=== PATIENT | female | born 1990 | race Caucasian/White ===

== ENCOUNTER 2021-04-12 12:56 | Emergency (ER) | payer OTHER, SELFPAY ==
[2021-04-12 13:30] VITALS: BP 107/72; PULSE 83; RESP 16; TEMP 36.8; O2SAT 100; BMI 23.8
[2021-04-12] MEDS: Ondansetron ODT 4 MG TAB.RAPDIS TRANSLINGU (13:38)
[2021-04-12 14:33] LABS: Influenza A PCR NEGATIVE (Negative); Influenza B PCR NEGATIVE (Negative); Resp Syncy Virus RNA Qual PCR NEGATIVE (Negative); SARS COV2 PCR INHOUSE NEGATIVE (Negative)
== END 2021-04-12 15:07 | disposition left against medical advice (07) ==
PROVIDERS: Emergency Provider Emergency Medicine
DX: R51.9 Headache, unspecified (principal); R11.10 Vomiting, unspecified; Z20.822 Contact with and (suspected) exposure to COVID-19
CPT/HCPCS: 0241U; 36415; 99282; 99283

== ENCOUNTER 2025-06-02 19:19 | Emergency (ER) | payer OTHER, SELFPAY ==
[2025-06-02 19:30] VITALS: BMI 23.8
--- OUTSIDE RECORDS SUMMARY | 2025-06-02 20:20 | XMS_ITS | Clinical Summary ---
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 Role Phone Daphney Overton MD Primary Care Provider [phone] Surgical History Surgery Date Site/Laterality Comments OTHER SURGICAL HISTORY PROCEDURE: DENIES PREVIOUS SURGERY Medical History Medical History Date Comments Hypothyroidism 07/01/2016 DX:Hypothyroidis m Family History Medical History Relation Name Comments Heart failure Mother Breast cancer Paternal Grandmother Colon cancer Neg Hx Ovarian cancer Neg Hx Uterine cancer Neg Hx Relation Name Status Comments Mother Paternal Grandmother Social History Tobacco Use Types Packs/Day Years Used Date Smoking Tobacco: Every Day Cigarettes Smokeless Tobacco: Never Alcohol Use Standard Drinks/Week Comments Not Currently 0 (1 standard drink = 0.6 oz pur e alcohol) Comments Unknown Sex and Gender Information Value Date Recorded Sex Assigned at Not on file Legal Sex Female 10:31 AM EST Gender Identity Not on file Sexual Orientation Not on file Obstetrics History Last Filed Vital Signs Vital Sign Reading Time Taken Comments Blood Pressure 110/77 02/20/2023 3:03 PM EDT Pulse 97 02/20/2023 3:03 PM EDT Temperature - - Respiratory Rate - - Oxygen Saturation - - Inhaled Oxygen Concentration - - Weight 62.8 kg (138 lb 6.4 oz) 02/20/2023 3:03 P M EDT Height 157.5 cm (5' 2 ) 02/20/2023 3:03 PM EDT Body Mass Index 25.31 02/20/2023 3:03 PM EDT Plan of Treatment Health Maintenance Due Date Last Done Comments Hepatitis A Vaccines (1 of 2 - Risk 2-dose series) 2007 Hepatitis B Vaccines (1 of 3 - 19+ 3-dose series) 2007 Pneumococcal Vaccine: Pediat rics (0 to 5 Years) and At-Risk Patients (6 to 49 Years) (1 of 2 - PCV) 2007 HIV Screening 08/17/2022 Hepatitis C Screening 08/17/2022 Social Influencers of Health Screening 08/17/2022 Cervical Cancer Screening: P ap Smear 03/20/2023 03/20/2020 Depression Screening 09/07/2024 COVID-19 Vaccine (1 - 2023-2 5 season) 2025 Influenza Vaccine (#1) 2025 09/09/2016 DTaP,Tdap,and Td Vaccines (2 - Td or Tdap) 02/05/2027 02/05/2017 HIB Vaccines Aged Out No longer eligi ble based on patient's age to complete this topic HPV Vaccines Aged Out No longer eligi ble based on patient's age to complete this topic IPV Vaccines Aged Out No longer eligi ble based on patient's age to complete this topic MMR Vaccines Aged Out No longer eligi ble based on patient's age to complete this topic Meningococcal ACWY Vaccine Aged Out N o longer eligible based on patient's age to complete this topic Meningococcal B Vaccine Aged Out No l onger eligible based on patient's age to complete this topic RSV Immunization Patients Un balwinder 20 months Aged Out No longer eligible b ased on patient's age to complete this topic Varicella Vaccines Aged Out No longer eligible based on patient's age to complete this topic Procedures Procedure Name Priority Date/Time Associated Diagnosis Comments PAP SMEAR Routine 03/20/2020 from Last 3 Months or Most Recently Relevant to Health Maintenance Results * Pap smear (03/20/2020) 03/20/2020 Narrative HISTORICAL TESTING LAB RESULTING AGENCY - 2020 2:10 PM EDT [id number] THINPREP PAP, IMAGED: NEGATIVE FOR SQUAMOUS INTRAEPITHELIAL LESION AND MALIGNANCY . CLUE CELLS ARE PRESENT. KILLIAN HICKS(ASCP) (CASE ELECTRONICALLY SIGNED 03 22 2020) RESULT OF APTIMA HIGH RISK HPV ASSAY: HIGH RISK HPV: NEGATIVE (SEROTYPES 16,18,31,33,35,39,45,51,52,56,58,59,66,68) COMPLETED ON 2020 ADEQUACY: SATISFACTORY ENDOCERVICAL/TRANSFORMATION ZONE COMPONENT PRESENT. SOURCE: THINPREP PAP HPV ANY DX: REFLEX 16 AND 18, CERVICAL, IMAGED CLINICAL INFORMATION: HPV ANY DIAGNOSIS. HORMONES, PAP HX NEG 07/01/16, Z12.4, LMP 02/21/20 Emily Douglass CN LAB CYTOLOGY ORDERA BLES Final Result HISTORICAL TESTING LAB RESULTING AGENCY from Last 3 Months or Most Recently Relevant to Health Maintenance Care Teams Rub[employer]s Cutter Finisher Relationship Specialty Start Date End Date Daphney Overton MD [address] [place] [address] [place] [id number] PCP - General 06/23/16
--- NOTE | 2025-06-02 23:15 | ED.PSYCH ---
HPI - Psych General Chief Complaint: Psychiatric Symptoms Stated Complaint: Delusional, section 12 Time Seen by Provider: 06/02/25 20:28 Source: patient and EMS Mode of arrival: EMS Limitations: no limitations History of Present Illness ED Provider: Dr. Nayely Lozano HPI Narrative: Patient comes to the emergency room via ambulance from crisis. According to EMS, DCF and crisis reported that the patient believes that her 8-year-old daughter is poisoning her, that she is seeing bugs, not SI or HI. According to the patient, she states that she has no believes that her 8-year-old daughter is poisoning her, denies that she is seeing bugs. So, DCF reported that the patient got suspended from work for mental health issues. The Patient states that this is a huge misunderstanding based on gossip thought got out of hand. According to the patient, she is dealing with a wood mites in her house, and at the same time, her daughter came from school with head lice. Patient states that she was overwhelmed by 2 things happening at the same time, and she asked for a leave of absence to deal with the wood mites and home. Patient is known to have rash for several months. Patient states that this rash started after she gave to her baby a proximally 1 year ago. Patient has been seen by OBGYN and Dermatology, unclear if this was autoimmune versus hormonal versus infection. The patient was prescribed antibiotics and steroids without relieving the rash. Patient states that she does not believe that there are any bugs that are causing this. Patient states that she had an installation technician go to her house and checked for bedbugs just in case. There are no bugs at home other than the wood mites. Patient states that at home, her 8-year-old was joking with her mom and told her that she put a slug and salt in her wounds. Seems that the patient's fiancee heard this, and repeated the child's joke to his sister who also works in the patient's daycare facility. This was misinterpreted as the child is poisoning her mother, and the fiancee's sister repeated this to other co-workers. However, the patient never mentioned or believed that her daughter is doing any harm. Patient states that this was a yound child's joke joke. Patient states that she is very upset with DCF, she understands that DCF was called. However, she disagrees completely with the report. Especially, patient states that she is very upset that they recommended that she is not left alone with a 1-year-old and 8-year-old children. Patient states that she has an would never hurt any of her kids. With all that said, patient denies SI or HI, denies anxiety or depression. Patient is very upset with the whole above-mentioned situation. Related Data Home Medications ?Medication ?Instructions ?Recorded ?Confirmed buprenorphine 8 mg-naloxone 2 mg 2 film sublingual DAILY 06/02/25 06/02/25 sublingual film cetirizine 10 mg tablet 10 mg PO DAILY PRN allergies 06/02/25 06/02/25 clonazepam 0.5 mg tablet 0.5 mg PO BID PRN anxiety 06/02/25 06/02/25 dextroamphetamine-amphetamine ER 1 cap PO DAILY 06/02/25 06/02/25 30 mg 24hr capsule,extend release levothyroxine 100 mcg tablet 100 mcg PO DAILY 06/02/25 06/02/25 sertraline 100 mg tablet 100 mg PO DAILY 06/02/25 06/02/25 Allergies Allergy/AdvReac Type Severity Reaction Status Date / Time No Known Allergies (No Known Allergy Verified 06/02/25 19:36 Allergies*) Review of Systems Review of Systems: Constitutional : No Weight loss, No Fever, No Chills, No Night Sweats, No Fatigue, No Malaise ENT/Mouth : No Hearing loss, No Ear Pain, No Nasal Congestion, No Sinus Pain, No Hoarseness, No sore throat, No Rhinorrhea, No Swallowing Difficulty Eyes: No Eye Pain, No Swelling, No Redness, No Foreign Body, No Discharge, No Vision Changes Cardiovascular : No Chest Pain, No SOB, No Dyspnea on Exertion, No Orthopnea, No Edema, No Palpitations Respiratory : No Cough, No Sputum, No Wheezing, No Smoke Exposure, No Dyspnea Gastrointestinal : No Nausea, No Vomiting, No Diarrhea, No Constipation, No abdominal Pain, No Hematochezia, No Melena Genitourinary : no irregular bleeding, No Dysuria, No Urinary Frequency, No Hematuria, No Urinary Incontinence, No Urgency, No Flank Pain, No Urinary Flow Changes, No Hesitancy Musculoskeletal : No joint pain, No Myalgias, No Joint Swelling Skin : Chronic rash Neuro : No Weakness, No Numbness, No Paresthesias, No Loss of Consciousness, No Dizziness, No Headache Psych : No Anxiety/Panic, No Depression, No SI/HI/AH/VH Heme/Lymph: No Bruising, No Bleeding,No Lymphadenopathy Endocrine : No Polyuria, No Polydipsia, No Temperature Intolerance PMF Past Medical History Medical History Hypothyroid Social History Social History (System 10/21/23 @ 14:34 by Carlyn Redmond) Smoked in Last 30 Days: No Advance Directives: No Advance Directives Information Provided: No Do you have a plan to hurt others: No Plan Patient : No Physical Exam Exam: Exam: Appearance: Alert. Oriented X3. No acute distress. Eyes: Pupils equal, round and reactive to light. ENT: Pharynx normal. Neck: Normal inspection. Neck supple. No lymph nodes noted. No crepitus CVS: Normal heart rate and rhythm. Pulses normal. Normal S1 and S2 Respiratory: No respiratory distress. Breath sounds normal. No Wheezing. No rales Abdomen: Soft and nontender. No rigidity. No distention. Skin: In multiple polyps of the body, patient has scab-like lesions. Extremities: No lower extremity edema. No Lacerations. No Rash Neuro: Oriented X 3. No motor deficit. No sensory deficit. Moving all extremities. No slurred speech. CN 2 through 12 grossly intact Psych: calm, cooperative, normal affect Vital Signs: Vital Signs: BMI result Body Mass Index 23.8 Medical Decision Making Medical Decision Making MDM Narrative: Overall, I do not believe that the patient is delusional or psychotic at all. Sounds like there was a huge misunderstanding between family members, at work gossip and DCF. Patient is not SI or HI, Section 12 is not indicated Patient does have a rash. Per patient, the rash has already been evaluated by dermatology and OBGYN. I discussed with the patient that the next best option is to talk to her primary care physician about referring her to immunology. It is possible that patient may have an autoimmune disorder (bullous pemhigoid, pemphigus vulgaris, dermatitis herpetiformis, ligear IgA disease, cuataneous lupus, vasculis, dermatomyositis, Behcet's or some other autoimmune disorder). Patient does have hypothyroidism which puts her at risk of other autoimmune diseases. I discussed the patient with the care team, they will evaluate the patient, labs have just been sent My interpretation of labs: No significant abnormality in patient's hematology. Urine negative for , UA negative for UTI, large amount of squamous epithelial cells present, urine positive for buprenorphine, marijuana and amphetamines, patient gets scheduled prescriptions for Adderall, buprenorphine and benzodiazepines The care team evaluated the patient They were able to get in touch with the patient's brother, patient does have history of delusions. When I spoke with the patient, she denied any history of hospitalizations. However, patient's brother report that she does have history of hospitalizations for delusions. However, inpatient level of care was not recommended or indicated. Seems that patient lied about some details, because she wants to go home and see her kids. Care team did not suspect that the patient is any danger to her kids. They were able to get in touch with the patient's fiancee who is at home now with the kids. He has no safety concerns about the patient being alone with the kids Overall, patient does not need to be section 12 Patient is not SI no HI, patient's seems so have history of delusions. However, there are no safety concerns of her being discharged or being alone with her kids Patient will follow-up with the primary care physician, care team will provide information for follow-ups in outpatient clinics. Differential Diagnosis Differential Diagnoses: The differential diagnosis associated with the presentation includes (Anxiety, misunderstanding, autoimmune disorder see above) Admission/Observation Consideration of admission/observation: Escalation of care including admission/observation considered (Care team consult pending) Consult Healthcare Provider Management of the patient was discussed with: Behavioral Health Provider Lab Data [facility] Lab Attestation statement: I reviewed the patient's lab results. 06/02/25 23:28 06/02/25 23:28 Labs: Lab Results 06/02/25 06/02/25 Range/Units 23:27 23:28 WBC 6.9 (4.8-10.8) X10*3/uL RBC 4.48 (4.20-5.50) X10*6/uL Hgb 13.2 (12.0-16.0) g/dl Hct 39.2 (37.0-47.0) % MCV 87.5 (80.0-98.0) fL MCH 29.5 (27.0-33.0) pg MCHC 33.7 (31.0-35.0) g/dl RDW 13.4 (11.0-16.0) % Plt Count 318 (160-400) X10*3/uL MPV 10.7 (9.4-12.3) fL Immature Gran % (Auto) 0.1 (0.0-0.4) % Neut % (Auto) 47.8 (45-73) % Lymph % (Auto) 41.4 H (20-40) % [place] % (Auto) 7.4 (2-11) % Eos % (Auto) 2.6 (0-4) % Baso % (Auto) 0.7 (0-2) % Lymph # (Auto) 2.9 (1.2-4.9) X10*3/uL [place] # (Auto) 0.5 (0.1-1.2) X10*3/uL Eos # (Auto) 0.2 (0.0-0.4) X10*3/uL Baso # (Auto) 0.1 (0.0-0.2) X10*3/uL Abs Immat Gran (auto) 0.01 (0.00-0.03) X10*3/uL Absolute Neuts (auto) 3.3 (2.0-8.3) x10*3/uL Absolute Nucleated RBC 0.000 (0.0-0.012) X10*3/uL Nucleated RBC % (auto) 0.0 (0.0-0.2) /100WBC Sodium 142 (135-145) mmol/L Potassium 4.5 (3.3-5.1) mmol/L Chloride 107 (96-108) mmol/L Carbon Dioxide 29 (22-29) mmol/L Anion Gap 11 L (12-20) BUN 10 (9-16) mg/dL Creatinine 0.63 (0.5-1.4) mg/dL Estim Creat Clear Calc 96.6 Estimated GFR > 60 Random Glucose 88 (60-115) mg/dL Calcium 8.9 (8.4-10.2) mg/dL Total Bilirubin 0.7 (0.0-1.0) mg/dL AST 23 (5-31) U/L ALT 17 (0-31) U/L Alkaline Phosphatase 64 (39-117) U/L Total Protein 6.4 L (6.5-8.0) g/dL Albumin 4.4 (3.5-5.0) g/dL Urine Color Dark Yellow Urine Appearance Clear Urine pH 5.5 (5.0-9.0) Ur Specific [place] 1.020 (1.005-1.025) Urine Protein Negative (Neg-Trace) mg/dL Urine Glucose (UA) Negative (Negative) mg/dL Urine Ketones Trace (Negative) mg/dL Urine Blood Negative (Negative) Urine Nitrite Negative (Negative) Ur Leukocyte Esterase Trace H (Negative) Urine RBC 0-2 (0-2) /HPF Urine WBC 0-5 (0-5) /HPF Ur Squamous Epith Cells 11-20 (0-2) /HPF Urine Bacteria 3+ (None Seen) Hyaline Casts 0-2 (0-2) /LPF Urine Test NEGATIVE (NEGATIVE) Salicylates < 5.0 L (15-30) mg/dL Urine Opiates Screen Not Detected (Not Detect) Ur Buprenorphine Scrn Positive H (Not Detect) ng/mL Ur Oxycodone Screen Not Detected (Not Detect) ng/mL Urine Methadone Screen Not Detected (Not Detect) ng/mL Urine Fentanyl Screen Not Detected (Not Detect) Ur Barbiturates Screen Not Detected (Not Detect) Ur Phencyclidine Scrn Not Detected (Not Detect) Ur Amphetamines Screen POSITIVE H (Not Detect) U Benzodiazepines Scrn Not Detected (Not Detect) Urine Cocaine Screen Not Detected (Not Detect) U Marijuana (THC) Screen POSITIVE H (Not Detect) Ethyl Alcohol < 10 mg/dL Critical Care Time Critical Care Time Critical Care Time: Yes Total Critical Care Time: 40 Attestation: I have personally provided critical care time. Time includes review of lab data, radiology results, discussion with consultants, and monitoring for potential decompensation. Intervention performed as documented. Discharge Plan Discharge Clinical Impression: Acute anxiety, Paranoid ideation Patient Disposition: Home, Self-Care Additional Instructions: Please follow-up with your primary care physician tomorrow. It is possible that you may have an autoimmune process that may be causing the rash in your skin (bullous pemhigoid, pemphigus vulgaris, dermatitis herpetiformis, ligear IgA disease, cuataneous lupus, vasculis, dermatomyositis, Behcet's or some other autoimmune disorder). You may benefit from a referral to a specialist/craft recruiter. If you have any worsening or new symptoms, please return to the emergency room or call 911 Prescriptions: No Action cetirizine 10 mg tablet 10 mg PO DAILY PRN (Reason: allergies) clonazepam 0.5 mg tablet 0.5 mg PO BID PRN (Reason: anxiety) sertraline 100 mg tablet 100 mg PO DAILY levothyroxine 100 mcg tablet 100 mcg PO DAILY dextroamphetamine-amphetamine 30 mg capsule,extended release 24hr 1 cap PO DAILY buprenorphine-naloxone 8-2 mg film 2 film sublingual DAILY Interventions: Schuyler-Suicide Risk Severity Scale Last Done: 06/02/25 19:36 Print Language: Estonian
[2025-06-02 23:33] LABS: Hematocrit 39.2 % (37.0-47.0); Hemoglobin 13.2 g/dl (12.0-16.0); Imm Gran Abs Auto 0.01 X10*3/uL (0.00-0.03); Imm Gran Pct Auto 0.1 % (0.0-0.4); Lymphocytes Absolute Auto 2.9 X10*3/uL (1.2-4.9); MANUAL DIFF FLAG NO; Mean Corpuscular HGB Conc 33.7 g/dl (31.0-35.0); Mean Corpuscular Hemoglobin 29.5 pg (27.0-33.0); Mean Corpuscular Volume 87.5 fL (80.0-98.0); NRBC Abs Auto 0.000 X10*3/uL (0.0-0.012); NRBC Pct Auto 0.0 /100WBC (0.0-0.2); Platelet Count 318 X10*3/uL (160-400); Red Blood Count 4.48 X10*6/uL (4.20-5.50); White Blood Count 6.9 X10*3/uL (4.8-10.8)
[2025-06-02 23:35] LABS: Appearance Urine Clear; Glucose Urine UA Negative (Negative); PH 5.5 (5.0-9.0); Specific Gravity - Urine 1.020 (1.005-1.025); UMIC TRIGGER UACC YES
[2025-06-02 23:37] LABS: UPreg QC Valid YES
[2025-06-02 23:47] LABS: Cannabinoid Screen Urine POSITIVE (Not Detect)
[2025-06-02 23:55] LABS: Alanine Aminotransferase 17 U/L (0-31); Albumin Level 4.4 g/dL (3.5-5.0); Alkaline Phosphatase 64 U/L (39-117); Anion Gap 11 (12-20); Aspartate Amino Transferase 23 U/L (5-31); Blood Urea Nitrogen 10 mg/dL (9-16); Calcium 8.9 mg/dL (8.4-10.2); Carbon Dioxide 29 mmol/L (22-29); Chloride 107 mmol/L (96-108); Creatinine Clr Calc Pharmacy 96.6; Estimated Glomerular Filt Rate > 60; Potassium 4.5 mmol/L (3.3-5.1); Salicylate < 5.0 mg/dL (15-30); Sodium 142 mmol/L (135-145); Total Protein 6.4 g/dL (6.5-8.0)
[2025-06-03 00:50] VITALS: BP 117/79; PULSE 69; RESP 18; TEMP 36.9; O2SAT 99
== END 2025-06-03 00:53 | disposition home or self-care (01) ==
PROVIDERS: Emergency Provider Emergency Medicine
DX: F41.9 Anxiety disorder, unspecified (principal); F22 Delusional disorders; R21 Rash and other nonspecific skin eruption; Z79.899 Other long term (current) drug therapy
CPT/HCPCS: 36415; 80053; 80179; 80307; 81001; 81025; 85025; 99284; S9485